=== PATIENT | female | born 1980 | race African-American/Black ===

== ENCOUNTER 2016-11-04 15:09 | Inpatient (IN) | payer OTHER ==
--- NOTE | ~2016-11-04 | PN ---
Unit #: [id number] #: [id number] Patient: NY BEARD [id number] [facility] [address] [place] [address] [id number] MR#: [id number] NAME: NY BEARD ROOM: [facility] Age: 36 Sex: F Admission Date: 11/04/2016 : 1980 Attending Physician: Katherin Thomas M.D. Admitting Physician: Katherin Thomas M.D. Primary Care Physician: Generic Doctor Not In System [facility] PROGRESS NOTES DATE OF SERVICE: 11/06/2016 SUBJECTIVE Ms. Beard is a 36-year-old female, who was seen today and chart was reviewed and the case was discussed with the staff. She has been anxious, withdrawn, and rather seclusive to herself. Meanwhile, she has been cooperative with the treatment recommendations and has been taking the medications and tolerating them fairly well with no reported side effects. MENTAL STATUS EXAMINATION Middle-aged female, who was casually dressed with a fair personal hygiene, appears to be in no acute distress or discomfort. She was awake and alert with impaired attention and concentration. Her mood was anxious with a congruent affect. Her speech was slow and restricted in content. Her thought processes were disorganized with some looseness of associations. Her insight and judgment remain significantly impaired. TREATMENT PLAN 1. We will continue her on her current medications and treatment protocol. We will monitor her response to the medications and make further adjustments as needed. 2. We will continue to follow up. Dictated by... Rukhsana Vincent/lawrence TD: 11/06/2016 09:14 JOB #: [id number] [facility] PROGRESS NOTES X Katherin Thomas MD PROGRESS NOTE
--- NOTE | ~2016-11-04 | HP ---
Unit #: [id number] #: [id number] Patient: MELL BEARD [id number] [place] [address] [id number] MR#: [id number] NAME: MELL BEARD ROOM: [facility] Age: 36 Sex: F Admission Date: 11/04/2016 : 1980 Attending Physician: Katherin Thomas M.D. Admitting Physician: Katherin Thomas M.D. Primary Care Physician: Jace Doctor Not In System HISTORY AND PHYSICAL HISTORY OF PRESENT ILLNESS Mell is a 36 year old admitted to [address] [place] [address] with depression and verbalizing wanting to hurt herself. PAST MEDICAL HISTORY 1. Morbid obesity. 2. High blood pressure. 3. Restless leg syndrome. 4. Hypothyroidism. PAST SURGICAL HISTORY 1. T and A. 2. Gastric bypass. ALLERGIES No known drug allergies. SOCIAL HISTORY Smokes 1/2 pack per day. Drinks alcohol on occasion. Denies illicit drug use. FAMILY HISTORY Medically noncontributory. REVIEW OF SYSTEMS CONSTITUTIONAL: No fever or chills. HEENT: Denies any sore throat, ear pain or runny nose. CARDIOVASCULAR: Denies chest pain, irregular heart rhythm or palpitations. CHEST: Denies shortness of breath or cough. No hemoptysis. GASTROINTESTINAL: Denies nausea, vomiting, diarrhea or chronic constipation. ENDOCRINE: Denies history of increased thirst or urination. No recent significant weight loss or gain. GENITOURINARY: Denies dysuria, frequency, or hematuria. SKIN: Denies any rashes. HEMATOLOGIC: Denies history of increased bleeding or bruising. MUSCULOSKELETAL: Denies any hot, swollen joints. No generalized muscle pain. NEUROLOGIC: Denies problems with vision or speech. No frequent, severe headaches. No numbness, tingling or weakness in any extremities. Denies loss of bladder or bowel control. CURRENT MEDICATIONS Unit #: [id number] #: [id number] Patient: MELL BEARD 1. Zanaflex 8 mg b.i.d. 2. Nicotine patch 7 mg daily. 3. Ropinirole 0.5 mg q.h.s. 4. Amitriptyline 25 mg q.h.s. 5. Phenergan 25 mg t.i.d. 6. Percocet 7.5/325 one tab q. 6 hours p.r.n. 7. Milk of Magnesia p.r.n. 8. Maalox p.r.n. 9. Tylenol p.r.n. 10. Norvasc 5 mg daily. 11. Zoloft 150 mg daily. PHYSICAL EXAMINATION GENERAL: Alert, morbidly obese, in no apparent distress. VITAL SIGNS: Blood pressure 144/86, heart rate 98, respirations 16, temperature 98.6. WEIGHT: 320. HEIGHT: 5 feet 8 inches. SKIN: Warm and dry without rash or lesion. HEENT: Normocephalic. TMs not viewed. Oral and nasal passages clear. Conjunctivae clear. PERRLA. EOMs intact. NECK: Supple without lymphadenopathy or thyromegaly. HEART: Regular rate and rhythm without murmur. LUNGS: Clear. ABDOMEN: Soft, nontender. : Not done. EXTREMITIES: No evidence of cyanosis, clubbing or edema. Moves all without focal deficit. NEUROLOGICAL: Grossly within normal limits. Cranial Nerves: II: Visual porter are intact. III, IV AND : Extraocular movements are intact. Pupils are equal, round and reactive to light. V: Facial sensation is grossly normal. VII: Facial movements and expression are normal. VIII: Auditory acuity grossly intact. IX, X: Uvula is midline. Phonation is normal. XI: Patient shrugs shoulders and turns head normally. XII: Tongue protrudes in the midline. Sensory and Motor Function: Sensory and motor sensation is grossly normal. Motor: moves all extremities well. Coordination: Gait is normal. Deep Tendon Reflexes: Intact. IMPRESSION Psychiatric admission. RECOMMENDATIONS PSYCHIATRIC: Per psychiatrist. MEDICAL: See no contraindications to participate in facility's activities. MEDICAL PROGNOSIS Good. MEDICAL CONDITION Stable. Dictated by... Unit #: [id number] #: [id number] Patient: MELL BEARD Marizol Leonard P.A.-C. for Rukhsana Coats/caro TD: 11/05/2016 15:26 JOB #: [id number] HISTORY AND PHYSICAL X Marizol Leonard X HISTORY AND PHYSICAL
--- NOTE | ~2016-11-04 | PA ---
Unit #: [id number] #: [id number] Patient: NY BEARD [id number] [facility] [address] [place] [address] [id number] I MR#: [id number] NAME: NY BEARD ROOM: 31 Age: 36 Sex: F Admission Date: 11/04/2016 : 1980 Date of Assessment: Attending Physician: Katherin Thomas M.D. Admitting Physician: Katherin Thomas M.D. Primary Care Physician: Generic Doctor Not In System PSYCHIATRIC ASSESSMENT DATE OF SERVICE 11/04/2016. IDENTIFYING DATA Ms. Beard is a 36-year-old single female who is a resident of [place], [place] and was transferred to us from [facility]. CHIEF COMPLAINT "I have too much stress and anxiety." HISTORY OF PRESENT ILLNESS Ms. Beard is a 36-year-old female who was admitted at [facility] on 11/03/2016 after an overdose on Zanaflex and was later admitted to intensive care unit and she stated that she was upset over her son's girlfriend, getting an on Thursday and she wanted to keep the baby and raise it, but girl's mother made her aborted and the patient stated due to that and other stress, she took the pills impulsively and stated that she has never made an attempt before and would not do it again and would like to go home and stated Thursday night, she had a lot on her plate and stated that she has taken medications for depression and anxiety for years and mother and other situations are stressing her out. The patient stated that she has children to live for and long-term relationship with a girlfriend, however, seen to be impulsive and irritable and the ICU doctors were not comfortable letting her leave and as such, was put on 72-hours hold and then was transferred to us. SUBSTANCE ABUSE HISTORY The patient denies any alcohol or drug abuse. PAST PSYCHIATRIC HISTORY The patient has not had any prior inpatient or outpatient psychiatric treatment. Review of the medical records indicate that currently she is on Zoloft 150 mg a day and has been diagnosed and treated for mood disorder; however, she is not seeing a psychiatrist or therapist. PAST MEDICAL HISTORY Hypertension, chronic thyroid disease, chronic pain. ALLERGIES No known medication allergies. Unit #: [id number] #: [id number] Patient: NY BEARD PERSONAL AND SOCIAL HISTORY A 36-year-old white female who reports that she lives at home with her life partner and 3 children and has fairly decent social support system. MENTAL STATUS EXAMINATION Young white female who was casually dressed with fair personal hygiene, appears to be in no acute distress or discomfort. She was awake and alert on interaction with intact orientation to time, place, and person. Her mood was anxious and depressed with a congruent affect. Her speech was slow and goal directed. She denies any current suicidal or homicidal ideations, and also denies any auditory or visual hallucinations. Her insight and judgment remain significantly impaired. DIAGNOSTIC IMPRESSION Psychiatric: Major depressive disorder, recurrent, moderate, without psychotic features. Medical: Hypertension, chronic thyroid disease, chronic pain. Stressors: Moderate psychosocial stressors. TREATMENT PLAN 1. The patient has presented with history of mood disorder and has been decompensating and will need inpatient hospitalization for safety and stabilization. We will start her back on her home medications including her Zoloft and we will monitor her response and make further adjustments as needed. 2. Supportive therapy was provided to the patient. 3. Safe, structured, and nourishing environment will be provided. ESTIMATED LENGTH OF STAY 5 to 7 days. ABILITY TO HELP SELF Limited. WILLINGNESS TO HELP SELF The patient appears to be willing to help self. STRENGTHS 1. Communicative. 2. Cooperative. PROBLEMS 1. Chronic dysphoric symptoms. 2. Poor social support system. DISCHARGE CRITERIA This will be contingent upon the patient's ability to show resolution of her depression and anxiety and her ability to stay safe to herself and others, particularly after discharge from the hospital. Dictated by... Katherin Thomas M.D. GUY/lawrence TD: 11/05/2016 07:20 JOB #: [id number] Unit #: [id number] #: [id number] Patient: NY BEARD PSYCHIATRIC ASSESSMENT X Katherin Thomas MD PSYCHIATRIC ASSESSMENT
--- NOTE | ~2016-11-04 | PN ---
Unit #: [id number] #: [id number] Patient: NY BEARD [id number] [facility] [address] [place] [address] [id number] I MR#: [id number] NAME: NY BEARD ROOM: [facility] Age: 36 Sex: F Admission Date: 11/04/2016 : 1980 Attending Physician: Katherin Thomas M.D. Admitting Physician: Katherin Thomas M.D. Primary Care Physician: Generic Doctor Not In System [facility] PROGRESS NOTES DATE OF SERVICE: 11/05/2016 SUBJECTIVE Ms. Beard is a 36-year-old female, who was seen today and chart was reviewed and the case was discussed with the staff. She has been complaining of persistent anxiety, though she denies any suicidal thoughts and is waiting for 72 hours hold to , so she can get out of the hospital. Meanwhile, she has been taking the medications and tolerating them fairly well. MENTAL STATUS EXAMINATION Young female, who was casually dressed with fair personal hygiene and appears to be in no acute distress or discomfort. She was awake and alert on interaction with intact orientation. Her mood was anxious with a congruent affect. Her speech was slow and goal directed. She denies any suicidal or homicidal ideations and also denies any auditory or visual hallucinations. Her insight and judgment remain slightly impaired. TREATMENT PLAN 1. We will continue her on her current medications and treatment protocol. We will monitor her response and make further adjustments as needed. 2. We will continue to follow up. Dictated by... Rukhsana Vincent/lawrence TD: 11/05/2016 09:48 JOB #: [id number] Unit #: [id number] #: [id number] Patient: NY BEARD PROGRESS NOTES X Katherin Thomas MD PROGRESS NOTE
--- NOTE | ~2016-11-04 | DS ---
Unit #: [id number] #: [id number] [facility] [id number] [facility] [address] [place] [address] [id number] MR#: [id number] NAME: NY WOLFF ROOM: [facility] Age: 36 Sex: F Admission Date: 11/04/2016 : 1980 Discharge Date: 11/06/2016 Attending Physician: Katherin Thomas M.D. Primary Care Physician: Generic Doctor Not In System DISCHARGE SUMMARY IDENTIFYING DATA Ms. Wolff is a 36-year-old white female who was self-referred to the hospital. DISCHARGE DIAGNOSES Psychiatric: Major depressive disorder, recurrent, moderate, without psychotic features. Medical: Hypertension, hypothyroidism. Stressors: Moderate psychosocial stressors. HISTORY OF PRESENT ILLNESS Please see initial psychiatric evaluation for details. PAST PSYCHIATRIC HISTORY Please see initial psychiatric evaluation for details. PAST MEDICAL HISTORY Please see initial psychiatric evaluation for details. HOSPITAL COURSE The patient was admitted to the adult psychiatric unit at [facility] terrence Brizuela and was oriented to the hospital environment. Routine p.r.n. medications were initiated and she was started back on her home medications and medications were adjusted and she was maintained on 72-hours hold; however, as soon as 72-hour hold , the patient refused to participate in the treatment any longer and was decided to leave against medical advice and was denying any suicidal ideations with intent and plan and as such, it was decided that she will be discharged home and will continue treatment on outpatient. DISCHARGE CONDITION Stable. PROGNOSIS Guarded. Dictated by... Rukhsana Vincent/lawrence TD: 12/23/2016 14:18 Unit #: [id number] #: [id number] Patient: NY WOLFF JOB #: [id number] DISCHARGE SUMMARY Page 1 of 1 X Katherin Thomas MD X DISCHARGE SUMMARY
== END 2016-11-06 13:45 | disposition left against medical advice (07) | DRG 885 ==
LOC: P1S 15:09
DX: F33.1 Major depressive disorder, recurrent, moderate (principal); E66.01 Morbid (severe) obesity due to excess calories; I10 Essential (primary) hypertension; E03.9 Hypothyroidism, unspecified; G25.81 Restless legs syndrome; F17.200 Nicotine dependence, unspecified, uncomplicated